=== PATIENT | female | born 1980 | race Caucasian/White ===

== ENCOUNTER 2018-10-27 18:58 | Inpatient (IN) ==
[2018-10-27] MEDS ORDERED: methylPREDNISolone 125 MG/2 ML VIAL IVP ONE (19:19)
[2018-10-27] MEDS ORDERED: Ipratropium/Albuterol Neb 3 ML IH ONE (19:19)
[2018-10-27] MEDS: Ipratropium/Albuterol Neb 3 ML ONE ×2 (19:20→23:26)
[2018-10-27] MEDS ORDERED: *HR* Promethazine 25 MG/ML VIAL IVP ONE (19:26)
--- NOTE | 2018-10-27 19:32 | Emergency Department Note ---
Disposition Clinical Impression: Asthma with exacerbation Disposition: Admitted As Inpatient Condition: Fair SOB HPI - General Chief Complaint: ED Shortness of Breath/Dyspnea Stated Complaint: KAREN Time Seen by Provider: 10/27/18 19:07 Source: patient Mode of arrival: private vehicle Limitations: no limitations Nursing Notes Reviewed: Yes Vital Signs Reviewed: Yes - History of Present Illness Pt is a 38F with hx of asthma managed on albuterol nebulizers and albuterol inhaler. She states that she has been feeling short of breath for approx one week, but really started to feel poorly today. Pt arrives via wheelchair and is on oxygen, which she normally does not require to maintain saturation. Pt is speaking in 1-2 word sentences. Respiratory therapy was called to bedside immediately to administer duonebs. - Related Data Allergies Allergy/AdvReac Type Severity Reaction Status Date / Time pseudoephedrine Allergy Hives Verified 10/27/18 19:20 [From [facility]] Review of Systems: All systems ED: reviewed and negative except as stated. Constitutional: Denies: fever, chills ENT ED: Denies: ear pain, throat pain Cardiovascular: Denies: chest pain, palpitations Respiratory: Denies: cough, Reports: dyspnea, wheezing, cough Gastrointestinal: Denies: abdominal pain, nausea, vomiting, diarrhea, constipation Genitourinary: Denies: urgency, dysuria, frequency Musculoskeletal: Denies: back pain, neck pain Integumentary: Denies: rash, abrasion Neurological: Denies: headache, weakness, numbness, paresthesias Psychiatric: Denies: anxiety, depression Endocrine: Denies: fatigue, heat or cold intolerance Hematological/Lymphatic: Denies: easy bleeding, easy bruising Allergic/Immunologic: Denies: facial swelling, urticaria Past Medical History - Past Medical History Attestation: Yes The following information was validated with the patient. Medical history: Reports: asthma Psychiatric history: Reports: no psych history - Social History Smoking Status: Never smoker Smokeless Tobacco Status: No Alcohol use: Reports: none Drug use: Reports: none Physical Exam General: A&O x 3. Appears anxious, exhaling through pursed lips, tripoding in wheel chair. Well developed, well nourished. Head: atraumatic, normocephalic. ENT: No conjunctival injection, no scleral icterus. PERRLA. EOMI. Oropharynx non- erythematous. mucous membranes moist. Neuro: No focal deficits, no speech deficit, no facial droop, mentating well. BUE/BLE Str 5/5. Pulm: Lungs with diffuse wheezes in all lung schaeffer. Cardio: Tachycardia. Chest not tender to palpation. Abd: Soft, non-distended. Normoactive bowel sounds. Non-tender to palpation. No guarding. Non rigid. Extremities: Radial pulses 2+ zenia, dorsalis pedis/posterior tibialis 2+ zenia. No LE edema. No cyanosis, clubbing. Skin: warm, dry, intact. No rashes. Psych: Appropriate mood and affect. Answers questions appropriately. Cooperative with exam. - General Limitations: no limitations General appearance: anxious Course - Reevaluation(s) Reevaluation #1: Pt received 3 duonebs and lung sounds remain diffusely wheezy. Will order 2gm Mg and 1hr continuos albuterol treatment. Time: 20:00 Vital Signs Temperature 99 F 10/27/18 19:09 Pulse Rate 108 10/27/18 19:09 Respiratory Rate 28 10/27/18 19:09 Blood Pressure 151/100 10/27/18 19:09 O2 Sat by Pulse Oximetry 98 10/27/18 19:09 Temperature 99 F 10/27/18 19:09 Pulse Rate 110 10/27/18 19:46 Respiratory Rate 26 10/27/18 19:46 Blood Pressure 169/102 10/27/18 19:46 O2 Sat by Pulse Oximetry 99 10/27/18 19:46 Oxygen Delivery Oxygen Delivery Nasal Cannula,Non Rebreather Mask Shortness of Breath/Dyspnea - [facility] Narrative Medical decision making narrative: Patient was initially treated with 3 DuoNeb's, Solu-Medrol. There was no appreciable improvement to her condition so she was given a 1 hour continuous breathing treatment of albuterol, as well as 2 g of magnesium. Patient continued to have symptoms, but was able to maintain saturation. Patient was admitted to hospitalist Dr. Block by attending physician Dr. Alok Lou for further workup and treatment. Patient was given an opportunity to ask questions at bedside and all of their concerns were addressed. Patient verbalized understanding and agreement with plan of care. Pt remained stable while in the department. - Medical Records Medical records reviewed: Yes I reviewed the patient's medical records. - Lab Data Lab results reviewed: Yes I reviewed the patient's lab results. Result diagrams: 10/28/18 00:29 10/28/18 00:29 Lab Results 10/27/18 10/27/18 10/27/18 Range/Units 19:38 19:38 19:38 WBC 16.1 H (4.3-11.1) K/mcL RBC 4.56 (3.82-4.97) M/mcL Hgb 11.3 L (11.5-15.4) g/dL Hct 35.0 L (35.3-44.9) % MCV 76.8 L (83.0-100.0) fL MCH 24.8 L (28.0-33.3) pg MCHC 32.3 (31.6-35.5) g/dL RDW 16.6 H (11.5-14.5) % Plt Count 369 (140-400) K/mcL MPV 9.8 (9.4-12.4) fL Immature Gran % 0.4 (0-4) % Seg Neutrophils % 59.6 % Lymphocytes % 24.7 % Monocytes % 6.0 % Eosinophils % 8.8 % Basophils % 0.5 % Neutrophils # 9.6 H (1.6-8.9) K/mcL Lymphocytes # 4.0 (0.6-4.6) K/mcL Monocytes # 1.0 (0.0-1.3) K/mcL Eosinophils # 1.4 H (0.0-0.6) K/mcL Basophils # 0.1 (0.0-0.2) K/mcL D-Dimer 479 (0-500) ng/mLFEU Sodium 136 (136-145) mEq/L Potassium 3.7 (3.5-5.1) mEq/L Chloride 102 (98-107) mEq/L Carbon Dioxide 23 (23-29) mEq/L BUN 13 (6-20) mg/dL Creatinine 0.56 L (0.60-1.20) mg/dL Est GFR ( Amer) > 60 (> 60) Est GFR (Non-Af Amer) > 60 (> 60) BUN/Creatinine Ratio 23 (6-26) Glucose 125 H (70-105) mg/dL Calculated Osmolality 284 (280-300) Calcium 9.0 (8.6-10.3) mg/dL Troponin I < 0.03 (< 0.04) ng/mL - Radiology Data Radiology results reviewed: Yes I reviewed the patient's radiology results. Chest X-Ray 10/27/18 19:19 IMPRESSION: No evidence of acute cardiopulmonary disease. D/ / Arash Mcgregor MD / Arash Mcgregor MD Interpreting Provider: Arash Mcgregor MD - EKG Data EKG attestation: Yes I reviewed and interpreted this EKG. EKG results narrative: HR 107, rhythm sinus tachycardia, axis normal. Intervals are within normal limits. No evidence of ST elevation or depression. Attestation Statement - Attestation Attestation: Dr. Lou note: Patient was seen in conjunction with emergency resident Dr. Liriano. Please see her charting for complete documentation. Spent [id number] time with the patient and I agree with the patient's treatment and disposition. Patient arri ves with moderate to severe tachypnea and diffuse wheezing. She came back on oxygenation. 3 DuoNeb treatments given with slight improvement of her symptoms. Within 20 minutes or tachypnea and wheezing return should she was given additional breathing treatments. Patient's level of tachypnea and respiratory distress is moderate and she has improved with treatments in the ER but is still too symptomatic to allow discharge. She will be admitted to the hospitalist for further care. Imaging and blood work is stable.
[2018-10-27] MEDS ORDERED: Albuterol Neb 7.5 MG, Sodium Chloride for inhalation 12 ML IH ONE (19:45)
[2018-10-27] MEDS ORDERED: Albuterol Neb 1.25 MG/3 ML VIAL ONE (19:53)
[2018-10-27 19:55] LABS: Basophils # 0.1 K/mcL (0.0-0.2); Basophils % 0.5 %; Eosinophils # 1.4 K/mcL (0.0-0.6); Eosinophils % 8.8 %; Hemoglobin 11.3 g/dL (11.5-15.4); Immature Granulocytes % 0.4 % (0-4); Lymphocytes % 24.7 %; Mean Corpuscular HGB Conc 32.3 g/dL (31.6-35.5); Mean Corpuscular Hemoglobin 24.8 pg (28.0-33.3); Mean Corpuscular Volume 76.8 fL (83.0-100.0); Mean Platelet Volume 9.8 fL (9.4-12.4); Neutrophils # 9.6 K/mcL (1.6-8.9); Platelet Count 369 K/mcL (140-400); Red Blood Count 4.56 M/mcL (3.82-4.97); Red Cell Distribution Width 16.6 % (11.5-14.5); Segmented Neutrophils % 59.6 %
[2018-10-27 20:16] LABS: BUN/Creatinine Ratio 23 (6-26); Blood Urea Nitrogen 13 mg/dL (6-20); Carbon Dioxide 23 mEq/L (23-29); Chloride 102 mEq/L (98-107); Glucose 125 mg/dL (70-105); Osmolality,Calculated 284 (280-300); Potassium 3.7 mEq/L (3.5-5.1); Sodium 136 mEq/L (136-145); eGFR For Non-African Americans > 60 (> 60)
[2018-10-27 20:17] LABS: Troponin I < 0.03 ng/mL (< 0.04)
[2018-10-27] MEDS ORDERED: Ondansetron 4 MG/2 ML VIAL IVP PRN (21:56)
[2018-10-27] MEDS ORDERED: Albuterol 2.5 MG/3 ML NEBULIZER IH PRN (21:56)
[2018-10-27] MEDS ORDERED: Naloxone 0.4 MG/ML INJ IVP PRN (21:56)
[2018-10-27] MEDS ORDERED: cefTRIAXone 2,000 MG in Water for inj. (sterile) 20 ML 20 ML IVP SCH (22:00)
[2018-10-27 23:36] LABS: ABG Base Excess 1 mEq/L (-2 to 3); ABG HCO3 26 mEq/L (21-27); ABG Oxygen Saturation 93 % (95-98); ABG PCO2 38 mmHg (35-45); ABG PH 7.44 pH Units (7.32-7.45); ABG PO2 63 mmHg (85-104); ABG TCO2 27 mEq/L (20-26)
--- NOTE | 2018-10-27 23:41 | Internal Med History&Physical ---
Date of Encounter: 10/27/18 Time of Encounter: 21:00 Internal Medicine - H&P: HPI Chief complaint: cough; wheeze; SOB Admitted From: Emergency Dept Plans for Post Hospital Care: Home History of present illness: Ms. Esquivel is a 38 year old female who presents to the ER with a 2 week history of coughing, wheezing, and shortness of breath. Patient has a history of asthma and was recently seen in urgent care and was prescribed a tapering steroid pack and aerosols with noted improvement. She finished her steroid tap er 2 days ago and, since then, has had significant worsening of her wheezing, coughing, and shortness of breath. While she was on the steroid taper, she felt markedly improved. Because symptoms became unbearable today, she came to ER for evaluation. Workup in ER revealed patient to have significant asthma exacerbation and required multiple nebulized breathing treatments. She has had little improvement and remains short of breath and has increased work of breathing. She is therefore admitted to hospitalist service for further workup and care. Upon my assessment of the patient in the ER, patient is finishing her second triple neb breathing treatment. She feels a little bit better, but she is still exhibiting signs and symptoms of increased work of breathing. She has conversational dyspnea, she is tachypneic, and she she is coughing and wheezing vigorously. She has had some subjective fevers and chills with productive purulent sputum over the last 24-48 hours. She denies any chest pain. She has had some nausea but no vomiting. She denies any diarrhea. Appetite and fluid intake have been poor due to tachypnea and difficulty breathing. She is a nonsmoker. She has been hospitalized before for asthma, but it has been a long time ago. She has never been intubated and/or in the ICU for asthma exacerbation. She denies any acute ill contacts recently. Past Med Surg Social Fam HX - Past Medical History Attestation: Yes The following information was validated with the patient. Source: patient, old records reviewed, other (ER records) Medical history: asthma Psychiatric history: no psych history - Past Surgical History Surgical History: no surgical history - Social History Smoking Status: Never smoker Smokeless Tobacco Status: No Alcohol use: none Drug use: none Current living situation: Home, With Family Activity Level: Independent ambulation Recent Out of Country Travel Within the Last 8 Weeks: No - Family History Mother Hx Family Cardiac Disorders: No Hx Family Respiratory Disorders: Yes Father Hx Family Cardiac Disorders: No Hx Family Respiratory Disorders: No Internal Medicine - H&P: Meds Allergy/AdvReac Type Severity Reaction Status Date / Time pseudoephedrine Allergy Hives Verified 10/27/18 19:20 [From [facility]] - Constitutional Constitutional: fatigue, fever(s), no chills, no night sweats - EENT Eyes: no blurry vision, no change in vision Ears: no tinnitus Nose, mouth and throat: nasal congestion, post-nasal drip, no sinus pressure, no sore throat - Cardiovascular Cardiovascular ROS IM: dyspnea, dyspnea on exertion, no chest pain, no edema, no lightheadedness, no orthopnea, no paroxysmal nocturnal dyspnea, no syncope - Respiratory Respiratory: cough, dyspnea, dyspnea on exertion, wheezing, chest congestion, change in phlegm color, no hemoptysis, no stridor - Gastrointestinal Gastrointestinal: nausea, no abdominal pain, no diarrhea, no hematemesis, no hematochezia, no melena, no vomiting - Genitourinary Genitourinary: no dysuria, no flank pain, no hematuria - Musculoskeletal Musculoskeletal ROS IM: no arthralgias, no back pain - Integumentary Integumentary IM: no rash, no jaundice - Neurological Neurological ROS: no dizziness, no focal weakness, no frequent falls, no headache(s) - Psychiatric Psychiatric: no anxiety, no depression - Endocrine Endocrine IM: no cold intolerance, no heat intolerance, no polydipsia, no polyphagia, no polyuria - Allergic/Immunologic Allergic/Immunologic: no GI upset with certain foods - Constitutional Vitals: Temp Pulse Resp BP Pulse Ox 99 F 109 18 140/92 94 10/27/18 19:09 10/27/18 23:20 10/27/18 23:20 10/27/18 23:20 10/27/18 23:20 General appearance: Present: cooperative, A&O X 3, pleasant, severe distress (respiratory), answers questions appropriately Exam: exhibiting signs of increased work of breathing -- tachypnea; conversational dyspnea; pursed lip breathing; coughing and wheezing audibly - Head Head exam: Present: atraumatic, normal inspection - Eye Eye exam: Present: EOMI, PERRL. Absent: scleral icterus Pupils: Present: normal accommodation - ENT ENT exam: Present: mucous membranes dry, normal exam, normal oropharynx - Neck Neck exam general surgery: Present: full ROM, supple, trachea midline. Absent: lymphadenopathy, tenderness, nuchal rigidity, thyromegaly - Respiratory Respiratory exam: Present: accessory muscle use, prolonged expiratory phase, re spiratory distress (moderate to severe), wheezes, tachypnea. Absent: chest wall tenderness, rales, stridor - Cardiovascular Cardiovascular exam: Present: distant heart sounds, RRR, +S1, +S2, tachycardia. Absent: diastolic murmur, systolic murmur - GI/Abdominal GI/Abdominal exam: Present: normal bowel sounds, soft. Absent: guarding, hepatomegaly, mass, rebound, splenomegaly, tenderness - Extremities Exam Extremities exam: Present: full ROM, normal capillary refill, normal inspection, warm, radial pulses palpable and symmetrical. Absent: calf tenderness, pedal edema, tenderness - Back Exam Back exam: Present: normal inspection. Absent: CVA tenderness (L), CVA tenderness (R) - Neurological Exam Neurological exam: Present: alert, CN II-XII intact, oriented X3, no focal deficits, strengths equal and symetr throughout - Psychiatric Psychiatric exam: Present: normal affect, normal mood - Skin Skin exam: Present: dry, intact, warm. Absent: rash Internal Med - H&P Results - Labs CBC & Chem 7: 10/27/18 19:38 10/27/18 19:38 Labs: Short CBC 10/27/18 Range/Units 19:38 WBC 16.1 H (4.3-11.1) K/mcL Hgb 11.3 L (11.5-15.4) g/dL Hct 35.0 L (35.3-44.9) % Plt Count 369 (140-400) K/mcL Neutrophils # 9.6 H (1.6-8.9) K/mcL BMP 10/27/18 19:38 Sodium 136 Potassium 3.7 Chloride 102 Carbon Dioxide 23 BUN 13 Creatinine 0.56 L Glucose 125 H Calcium 9.0 Cardiac Enzymes 10/27/18 Range/Units 19:38 Troponin I < 0.03 (< 0.04) ng/mL - EKG Data -: EKG Interpreted by Myself - EKG Data Prior EKG available for review: no EKG comments: 10/27/18 23:48 Sinus tahcycardia - Impressions ITS Impressions Chest X-Ray 10/27/18 19:19 IMPRESSION: No evidence of acute cardiopulmonary disease. D/ / Arash Mcgregor MD / Arash Mcgregor MD Interpreting Provider: Arash Mcgregor MD - Diagnostic Studies Chest x-ray Status: image reviewed by me (negative) - Assessment and Plan (1) Asthma with exacerbation Current Visit: Yes Status: Acute Assessment and plan: 1. Patient with signs and symptoms of severe respiratory distress requiring aggressive treatment with continuous aerosols, IV steroids, oxygen, and close monitoring. 2. Will admit to 2N stepdown unit, order scheduled and PRN aerosols, oxygen therapy, and ABG. 3. Will monitor clinically and with telemetry and continuous pulse oximetry. 4. If patient develops any signs of respiratory fatigue/hypercarbia, will move to ICU and consider ETT/mechanical ventilation. I discussed with patient and at length. Will exhaust conservative measures before considering invasive ventilation/oxygenation. However, will monitor closely on 2N and follow clinically. 5. Low suspicion for pneumonia; however, given fevers and failed outpatient treatment, will culture blood and sputum, and start empiric antibiotics for possible infectious process. Qualifiers: Asthma severity: severe Asthma persistence: persistent Qualified Code(s): J45.51 - Severe persistent asthma with (acute) exacerbation (2) Acute hypoxemic respiratory failure Current Visit: Yes Status: Acute Assessment and plan: 1. Care as above. 2. Monitor closely and support with oxygen, BiPap if necessary, and lastly with invasive (ETT) measures if necessary. (3) DVT prophylaxis Current Visit: Yes Status: Acute Assessment and plan: 1. Heparin SQ.
[2018-10-28 00:04] LABS: Bilirubin,Urine Negative (Negative); Blood,Urine Large (Negative); Clarity,Urine Clear (Clear); Color,Urine Yellow (Yellow); Glucose,Urine (UA) Normal (Normal); Ketones,Urine Negative (Negative); Leukocyte Esterase,Urine Negative (Negative); Nitrite,Urine Negative (Negative); Protein,Urine Negative (Neg-Trace); Urobilinogen,Urine Normal (Normal)
[2018-10-28 00:06] LABS: Bacteria,Urine None Seen per hpf (None-Few); Hyaline Casts,Urine None Seen per lpf (None-Few); RBC,Urine 0-3 per hpf (0-3); Squamous Epithelial Cell,Urine Moderate per lpf (None-Few); WBC,Urine 0-3 per hpf (0-3)
[2018-10-28] MEDS: Ipratropium/Albuterol Neb 3 ML IH SCH ×6 (00:22→20:01)
[2018-10-28] MEDS: Acetaminophen 325 MG TABLET PO PRN ×3 (00:40→19:58)
[2018-10-28] MEDS: methylPREDNISolone 125 MG/2 ML VIAL IVP SCH ×3 (00:41→17:37)
[2018-10-28 00:42] LABS: Basophils % 0.3 %; Eosinophils % 0.2 %; Hematocrit 36.6 % (35.3-44.9); Hemoglobin 11.7 g/dL (11.5-15.4); Immature Granulocytes % 0.4 % (0-4); Lymphocytes # 0.9 K/mcL (0.6-4.6); Lymphocytes % 5.5 %; Mean Corpuscular Hemoglobin 24.3 pg (28.0-33.3); Mean Corpuscular Volume 75.9 fL (83.0-100.0); Mean Platelet Volume 10.4 fL (9.4-12.4); Monocytes # 0.1 K/mcL (0.0-1.3); Monocytes % 0.4 %; Neutrophils # 14.9 K/mcL (1.6-8.9); Platelet Count 314 K/mcL (140-400); Red Blood Count 4.82 M/mcL (3.82-4.97); Red Cell Distribution Width 16.8 % (11.5-14.5); Segmented Neutrophils % 93.2 %
[2018-10-28] MEDS: *HR* Heparin 5,000 UNIT/ML VIAL SQ SCH ×4 (00:42→21:30)
[2018-10-28] MEDS: 0.9 % Sodium Chloride w KCl 20 MEQ/1,000 ML MLS IVC SCH ×2 (00:44→11:51)
[2018-10-28] MEDS: Azithromycin 500 MG in D5% in Water 250 ML IVPB SCH ×2 (00:45→21:30)
[2018-10-28 01:02] LABS: Alanine Aminotransferase 25 Units/L (7-52); Albumin 4.3 g/dL (3.5-5.7); Albumin/Globulin Ratio 1.4 (1.1-2.2); Alkaline Phosphatase 77 Units/L (34-104); Aspartate Amino Transferase 17 Units/L (13-39); BUN/Creatinine Ratio 23 (6-26); Bilirubin,Total 0.4 mg/dL (0.3-1.0); Blood Urea Nitrogen 12 mg/dL (6-20); Calcium 9.2 mg/dL (8.6-10.3); Carbon Dioxide 24 mEq/L (23-29); Chloride 103 mEq/L (98-107); Glucose 135 mg/dL (70-105); Magnesium 2.5 mg/dL (1.6-2.6); Osmolality,Calculated 288 (280-300); Sodium 138 mEq/L (136-145); Total Protein 7.4 g/dL (6.4-8.9); eGFR For Non-African Americans > 60 (> 60)
[2018-10-28 01:03] LABS: Globulin 3.1 g/dL (2.4-3.5)
--- NOTE | 2018-10-28 04:40 | Event Note ---
Date of Encounter: 10/28/18 Time of Encounter: 04:00 I reassessed patient, and she is breathing much better, off oxygen, and is resting comfortably. Per RN report, she has felt much better since her last triple neb aerosol. Given her improved status, we will move patient to a telemetry unit and off of the the step-down unit.
[2018-10-28] MEDS: Ipratropium/Albuterol Neb 3 ML ONE (07:27)
[2018-10-28] MEDS ORDERED: methylPREDNISolone 125 MG/2 ML VIAL IVP SCH (12:00)
--- NOTE | 2018-10-28 12:45 | Event Note ---
Date of Encounter: 10/28/18 Time of Encounter: 12:42 Patient was examined and reviewed the note. Lungs is still has diminished breath sounds with a few scattered wheezing. Saturating well on room air. Will decrease IV steroid dose 125 down to 60 mg IV every 8 hours today. Review the lab with trending down white count. Chest x-ray not suggestive for infiltrate. Will discontinue Rocephin but continue the Zithromax for now. Plan to discharge patient in 1 or 2 days if patient continued to improve while weaning down the medication.
[2018-10-29] MEDS: Ipratropium/Albuterol Neb 3 ML IH SCH ×7 (00:04→23:51)
[2018-10-29] MEDS: methylPREDNISolone 125 MG/2 ML VIAL IVP SCH ×3 (00:42→17:35)
[2018-10-29] MEDS: *HR* Heparin 5,000 UNIT/ML VIAL SQ SCH ×3 (05:44→22:03)
[2018-10-29] MEDS: Azithromycin 250 MG TABLET PO SCH (08:53)
[2018-10-29] MEDS: Benzonatate 100 MG CAPSULE PO PRN (11:58)
[2018-10-29] MEDS ORDERED: Saline Nasal Spray 44 ML BOTTLE NS PRN (12:42)
--- NOTE | 2018-10-29 12:44 | Internal Med Progress Note ---
Hospitalist Progress Note - Encounter Date of Encounter: 10/29/18 Time of Encounter: 12:41 - Subjective Interval History: Complaint of shortness of breath but better. Review the lab. Complaint of nasal congestion and sinus headache otherwise denies dizziness and nausea vomiting chest pain abdominal pain diarrhea - Exam Vitals: Temp Pulse Resp BP Pulse Ox 98.0 F 76 17 147/87 95 10/29/18 11:02 10/29/18 11:02 10/29/18 11:02 10/29/18 11:02 10/29/18 11:02 Exam: General appearance: No acute distress, A&O X 3 Head exam: Atraumatic Eye exam: EOMI, PERRLA ENT exam: Moist oral mucosa Neck nontender, supple Respiratory exam: Decreased breath sounds bilaterally with few scattered wheezing Cardiovascular exam: Regular rate and rhythm, no systolic murmur Abdominal exam: Soft, nontender, nondistended, positive bowel sounds Extremities exam: No calf tenderness, no pedal edema Present: Neurological exam: Grossly intact with no focal neurological deficit - Assessment and Plan (1) Asthma with exacerbation Current Visit: Yes Status: Acute Assessment and Plan: 1. Patient with signs and symptoms of severe respiratory distress requiring aggressive treatment with continuous aerosols, IV steroids, oxygen, and close monitoring. 2. Will admit to 2N stepdown unit, order scheduled and PRN aerosols, oxygen therapy, and ABG. 3. Will monitor clinically and with telemetry and continuous pulse oximetry. Low suspicion for pneumonia; however, given fevers and failed outpatient treatment, empiric antibiotic Rocephin and Zithromax was restarted by admitting physician. Blood and sputum culture with no growth therefore is stopped Rocephin but will continue Zithromax. Patient is still symptomatic but better therefore will try to wean IV steroid 40 mg IV every 12 hours while monitoring inpatient. The patient continued to improve then plan to discharge patient tomorrow on oral prednisone. Antiallergy medicine Claritin, Singulair andspray started for sinus congestion. Respiratory panel ordered-awaiting report (2) Acute hypoxemic respiratory failure Current Visit: Yes Status: Acute Assessment and Plan: As mentioned above. Improving (3) DVT prophylaxis Current Visit: Yes Status: Acute Assessment and Plan: 1. Heparin SQ. - Time Spent with Patient Total time spent is greater than 50% in coordination of care (as documented) at patient's floor/unit and/or counseling patient: 25 - 35 minutes Plan of Care Discussed with: patient Internal Medicine: Result - Labs CBC & Chem 7: 10/28/18 00:29 10/28/18 00:29 - ABG Interpretation ABG results: ABG ABG pH 7.44 pH Units (7.32-7.45) 10/27/18 23:32 ABG pCO2 38 mmHg (35-45) 10/27/18 23:32 ABG pO2 63 mmHg (85-104) L 10/27/18 23:32 ABG O2 Saturation 93 % (95-98) L 10/27/18 23:32 PT/INR, D-dimer D-Dimer 479 ng/mLFEU (0-500) 10/27/18 19:38 Consult Discharge Plan - Plan Referrals: Chela Roca, BARAK [Primary Care Provider] - __ (1) Asthma with exacerbation Qualifiers: Asthma severity: severe Asthma persistence: persistent Qualified Code(s): J45.51 - Severe persistent asthma with (acute) exacerbation
[2018-10-29] MEDS: Loratadine 10 MG TABLET PO SCH (13:33)
[2018-10-29 18:02] LABS: Adenovirus Not Detected (Not Detect); Bordetella Pertussis Not Detected (Not Detect); Chlamydophila pneumoniae Not Detected (Not Detect); Coronavirus 229E Not Detected (Not Detect); Coronavirus HKU1 Not Detected (Not Detect); Coronavirus NL63 Not Detected (Not Detect); Coronavirus OC43 Not Detected (Not Detect); Human Metapneumovirus Not Detected (Not Detect); Human Rhinovirus/Enterovirus Not Detected (Not Detect); Influenza A Subtype 2009 H1 Not Detected (Not Detect); Influenza A Untypeable Not Detected (Not Detect); Influenza B Not Detected (Not Detect); Mycoplasma pneumoniae Not Detected (Not Detect); Parainfluenza Virus 1 Not Detected (Not Detect); Parainfluenza Virus 2 Not Detected (Not Detect); Parainfluenza Virus 3 Not Detected (Not Detect); Parainfluenza Virus 4 Not Detected (Not Detect); Respiratory Syncytial Virus Not Detected (Not Detect)
[2018-10-29] MEDS: Acetaminophen 325 MG TABLET PO PRN (19:41)
--- NOTE | 2018-10-29 23:16 | Electrocardiograph Report ---
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
[2018-10-30] MEDS: Ipratropium/Albuterol Neb 3 ML IH SCH ×3 (03:52→11:30)
[2018-10-30] MEDS: *HR* Heparin 5,000 UNIT/ML VIAL SQ SCH (05:06)
[2018-10-30] MEDS: methylPREDNISolone 125 MG/2 ML VIAL IVP SCH (05:06)
[2018-10-30 05:16] LABS: Basophils # 0.1 K/mcL (0.0-0.2); Basophils % 0.3 %; Hematocrit 34.3 % (35.3-44.9); Hemoglobin 10.7 g/dL (11.5-15.4); Immature Granulocytes % 2.1 % (0-4); Lymphocytes % 13.3 %; Mean Corpuscular HGB Conc 31.2 g/dL (31.6-35.5); Mean Corpuscular Hemoglobin 24.6 pg (28.0-33.3); Mean Corpuscular Volume 78.9 fL (83.0-100.0); Mean Platelet Volume 10.1 fL (9.4-12.4); Monocytes # 0.6 K/mcL (0.0-1.3); Monocytes % 3.8 %; Neutrophils # 12.1 K/mcL (1.6-8.9); Platelet Count 332 K/mcL (140-400); Red Blood Count 4.35 M/mcL (3.82-4.97); Red Cell Distribution Width 17.7 % (11.5-14.5); Segmented Neutrophils % 80.5 %
[2018-10-30 05:35] LABS: BUN/Creatinine Ratio 24 (6-26); Blood Urea Nitrogen 13 mg/dL (6-20); Carbon Dioxide 24 mEq/L (23-29); Chloride 107 mEq/L (98-107); Glucose 120 mg/dL (70-105); Osmolality,Calculated 291 (280-300); Potassium 4.2 mEq/L (3.5-5.1); Sodium 140 mEq/L (136-145); eGFR For Non-African Americans > 60 (> 60)
[2018-10-30 06:44] VITALS: BP 135/90
[2018-10-30] MEDS: Azithromycin 250 MG TABLET PO SCH (08:50)
[2018-10-30] MEDS: Acetaminophen 325 MG TABLET PO PRN (08:50)
[2018-10-30] MEDS: Loratadine 10 MG TABLET PO SCH (08:50)
[2018-10-30] MEDS: Benzonatate 100 MG CAPSULE PO PRN (08:50)
--- NOTE | 2018-10-30 10:11 | Discharge Summary ---
- NOTES TO OUTPATIENT PROVIDER Notes to Outpatient Provider: Completed a tapering course of steroid and follow up with pulmonology for poorly controlled asthma. Orders not resulted at time of discharge: Pending orders 10/27/18 21:56 Culture,Blood [BC] Stat 10/31/18 04:00 Complete Blood Count [HEME] AM 0400 Date of Encounter: 10/30/18 Time of Encounter: 07:30 - Discharge Diagnosis (1) Asthma with exacerbation Priority: Secondary Status: Acute Qualifiers: Asthma severity: severe Asthma persistence: persistent Qualified Code(s): J45.51 - Severe persistent asthma with (acute) exacerbation (2) Acute hypoxemic respiratory failure Priority: Primary Status: Acute (3) DVT prophylaxis Priority: Secondary Status: Acute (4) Morbid obesity with BMI of 40.0-44.9, adult Priority: Secondary Status: Acute Hospital course: Ms. Esquivel is a 38 year old female with history of poorly controlled asthma and morbid obesity who was admitted for hypoxic respiratory failure secondary to asthma exacerbation. Improved with bronchodilators, IV Solu-Medrol, and azithromycin. She will be completing a 5 day course of azithromycin and tapering dose of steroid. Advair was added to her asthma inhaler regime due to frequent exacerbations necessitating ED/urgent care visits. Advised to follow up with pulmonary as outpatient to optimize her control. Discharge discussed with: patient, nurse - Time Spent with Patient Total time spent providing and/or coordinating discharge services: 31 mins - Discharge Medications Prescriptions: New Azithromycin [Zithromax] 250 mg PO Q24H #1 tablet Fluticasone/Salmeterol [Advair Hfa 115-21 Mcg Inhaler] 12 gm IH BID #1 hfa.aer.ad Loratadine [Claritin] 10 mg PO DAILY PRN #30 tablet PRN Reason: Allergy Symptoms predniSONE [PredniSONE] 40 mg PO DAILY #11 tablet Continue Benzonatate 100 mg PO TID PRN PRN Reason: Cough Albuterol Sulfate [Albuterol Inhaler] 1 puff IH Q4H PRN PRN Reason: Shortness Of Breath Albuterol Neb [Proventil Neb] 2.5 mg IH Q4H PRN PRN Reason: Shortness Of Breath Ferrous Sulfate [Iron] 325 mg PO DAILY Home Medications: Albuterol Neb [Proventil Neb] 2.5 mg IH Q4H PRN 10/28/18 [History] Albuterol Sulfate [Albuterol Inhaler] 1 puff IH Q4H PRN 10/28/18 [History] Benzonatate 100 mg PO TID PRN 10/28/18 [History] Ferrous Sulfate [Iron] 325 mg PO DAILY 10/28/18 [History] Azithromycin [Zithromax] 250 mg PO Q24H #1 tablet 10/30/18 [Rx] Fluticasone/Salmeterol [Advair Hfa 115-21 Mcg Inhaler] 12 gm IH BID #1 hfa.ae r.ad 10/30/18 [Rx] Loratadine [Claritin] 10 mg PO DAILY PRN #30 tablet 10/30/18 [Rx] predniSONE [PredniSONE] 40 mg PO DAILY #11 tablet 10/30/18 [Rx] Allergies/Adverse Reactions: Allergy/AdvReac Type Severity Reaction Status Date / Time pseudoephedrine Allergy Hives Verified 10/27/18 19:20 [From [facility]] Date of admission: 10/27/18 22:05 Primary care physician: Chela Roca CNP - Constitutional Vitals: Temp Pulse Resp BP Pulse Ox 97.8 F 64 18 135/90 97 10/30/18 06:43 10/30/18 06:43 10/30/18 06:43 10/30/18 06:43 10/30/18 06:43 General appearance: Present: cooperative, A&O X 3, pleasant, severe distress (respiratory), answers questions appropriately Exam: General appearance: No acute distress, A&O X 3 Lung: clear to auscultation, no wheezes Cardiovascular: Regular rate and rhythm, no systolic murmur Abdomen: Soft, nontender, nondistended Extremities exam: No calf tenderness, no pedal edema - Patient Status Disposition: Home, Self-Care Condition: Fair Functional capacity at discharge: independent ambulation Overall status at discharge: patient is progressing back to baseline - Discharge Instructions Instructions: Acute Respiratory Distress Syndrome (DC), Asthma (DC) Follow Up With: Chela Roca CNP [Primary Care Provider] - 11/01/18 2:45 pm Jimenez Kelley MD [Partnered Physician] - - Diet and Activity Activity: resume usual activities as tolerated Diet: regular diet
== END 2018-10-30 14:05 | disposition home or self-care (01) | DRG 202 ==
LOC: EMEROOARM 18:58 → 2NNU 18:58 → SUATTDRO 22:05 → OBSVTOIN 22:05 → 2NNU 10-28 00:09 → 3NENU 10-28 04:34 → 3BNU 10-28 16:35
PROVIDERS: ADMIT Pediatrics; ATTEND Internal Medicine